=== PATIENT | female | born 1985 ===

== ENCOUNTER 2017-09-20 16:39 | Emergency (ER) | payer SELFPAY ==
[2017-09-20] MEDS ORDERED: CLON-294 PO ×2 (16:52→18:17)
--- NOTE | 2017-09-20 18:14 | ER Report ---
History and Physical Time Seen By MD: 18:08 Hx. of Stated Complaint: PATIENT WANTS A REFILL OF HER ANXIETY MEDICATIONS HPI/ROS CHIEF COMPLAINT: Medication refill HISTORY OF PRESENT ILLNESS: This is a 31-year-old female who presents to the emergency department for a Klonopin refill. Patient states that she is moving from [facility] to [facility] with her fianc. Patient states that she did have a prescription for Klonopin but unfortunately they were not able to transfer the Klonopin from her provider and [place] to [place]. Patient states she last took the medication 2 days ago and thought she could make it to [place] however she is starting to feel anxious and has some achiness in her arms and legs. Patient states she's been on Klonopin for about 5-6 years she has a long-standing history of anxiety. Has no other complaints no nausea, vomiting, diarrhea, headaches, homicidal or suicidal thoughts. Denies shortness of breath or chest pain. Allergies: Coded Allergies: No Known Drug Allergies (Unverified , 09/20/17) Home Meds Active Scripts Clonazepam (KLONOPIN) 2 Mg Tablet, 2 MG PO BID, #7 TAB Prov:DEVAUGHN LANGLEY Louise [employer] 09/20/17 Reported Medications Clonazepam (KLONOPIN) 2 Mg Tablet, 1 MG PO BID, #4 TAB 09/20/17 Past Medical/Surgical History Patient has a past medical history of anxiety. 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 Respiratory: Chest is non tender, lungs are clear to auscultation. Cardiac: Regular rate and rhythm, no murmurs, clicks or rubs. Psych: Patient appears mildly anxious, making good eye contact no diaphoresis, patient is interacting well and acting appropriate. DIFFERENTIAL DIAGNOSIS: After history and physical exam differential diagnosis was considered for anxiety. Medical Decision Making ED Course/Re-evaluation ED Course The patient was admitted to room. A history and physical were obtained. Differential diagnoses were considered. Patient was given one 2 mg Klonopin in the emergency department. Patient was also given a prescription for 2 mg Klonopin twice a day enough for 3 days. Patient states when she gets to [place] she will follow-up and establish a primary care provider. Patient does understand that she cannot just stop the medication without tapering off. Patient had no other questions or concerns at this time and was discharged from the emergency department. Patient was in agreement with this plan of care. Decision to Disposition Date: Sep 20, 2017 Decision to Disposition Time: 18:15 Depart Departure Latest Vital Signs Vital Signs Date Time Temp Pulse Resp B/P (MAP) Pulse Ox O2 Delivery O2 Flow Rate FiO2 09/20/17 18:23 98.5 98 18 148/89 (108) 98 Room Air Impression: Primary Impression: Anxiety Additional Impression: Medication refill Condition: Improved Disposition: HOME OR SELF-CARE New Scripts Clonazepam (KLONOPIN) 2 Mg Tablet 2 MG PO BID, #7 TAB Prov: DEVAUGHN LANGLEY 09/20/17 Patient Instructions: Anxiety (ED) Additional Instructions: Drink plenty of water. Get plenty of rest. When you get to [place] please establish with a primary care provider. Take the medications as prescribed. May return to the ED for any other concerns or worsening symptoms. Problem Qualifiers DEVAUGHN LANGLEY Sep 20, 2017 18:14
[2017-09-20] MEDS ORDERED: clonazePAM 1 MG TAB PO ONE (18:15)
[2017-09-20 18:23] VITALS: BP 148/89
== END 2017-09-20 18:23 | disposition home or self-care (01) ==
LOC: ER 16:53
DX: F41.9 Anxiety disorder, unspecified (principal)
CPT/HCPCS: 99281